=== PATIENT | male | born 1965 | race Caucasian/White ===

== ENCOUNTER → 2016-12-07 | Outpatient (CLI) | payer OTHER ==
[~2016-12-07] MED LIST: ALLOPURINOL 10100 M1 PO; FLEXERIL PO; FLOVENT HFA 2220 MC1 INH; LEVOTHYROXIN0.075 MG PO; LEVOTHYROXIN0.175 MG PO; NASONEX17 GM NS; PERCOCET 5-3251 EACH PO; PROAIR HFA8.5 GM IH; PROAIR HFA8.5 GM INH; SYMBICORT80 MCG/4.1 INH; ULTRAM 50MG TAB50 MG PO
[2016-12-07 12:34] LABS: ABSOLUTE NEUTROPHILS 10.4 thou/uL (1.4-8.2); BASOPHILS 0.2 % (0.0-2.0); EOSINOPHILS 0.5 % (0.0-3.0); HEMATOCRIT 41.3 % (42.0-52.0); MCH 27.9 pg (26.0-34.0); MCHC 33.8 g/dL (28.0-37.0); MCV 82.4 fL (80.0-100.0); MONOCYTES 5.8 % (1.0-8.0); PLATELET COUNT 218 thou/uL (150-400); POLYS 82.5 % (36.0-66.0); RBC 5.02 mil/uL (4.50-6.00); RDW 15.1 % (10.5-14.5); WBC 12.6 thou/uL (4.0-11.0)
[2016-12-07 12:35] LABS: MANUAL DIFF NO
== END ==
LOC: RAD 12:09
PROVIDERS: Internal Medicine Pulmonary Disease
DX: J45.40 Moderate persistent asthma, uncomplicated (principal)

== ENCOUNTER 2018-07-11 00:17 | Inpatient (IN) | payer OTHER ==
[~2018-07-11] VITALS: Ht 185.4 cm; Wt 120.0 kg
--- NOTE | ~2018-07-11 | CATHLAB ---
[facility] [address] [employer] [place] [address] INVASIVE PROCEDURE REPORT Name: ESTEE KHAN Room #: 213-P ADM IN M.R.#: [id number] Admission: 07/11/18 Attend Phys: Ranjit Espitia MD Discharge: Date of : 65 Date of Service: 07/11/18 1313 Report #: [id number] THIS REPORT FOR: //name// APPROVED REPORT Study performed: 07/11/2018 07:40:00 Patient Details Patient Status: In-Patient Room #: The patient is a 52 year-old male Event Personnel Carlos Salinas Cell Tuber Machine, Edwin Lopez Mahmood, Amber Monitor, Rambo Metz RN Procedures Performed Art Access - R femoral artery* 98744 Initial Mod Sed Same Phys/QHP Gr5y [id number] 58006 Mod Sed Same Phys/QHP Ea 662619 Left Heart Cath w/or w/o Coronaries [id number] [facility] Place w/wo Plasty Single LAD 041595 Hemostasis w/ Mynx Indication Non-STEMI (>12 hrs to = 24 hrs), Chest pain Procedure Narrative The patient was brought urgently to the Cardiac Catheterization Laboratory and was prepped and draped in a sterile manner. The Right Groin^ was infiltrated with 1% Lidocaine subcutaneous anesthesia. A PINNACLE 6FR Sheath #[id number] sheath was inserted into the RFA^. Coronary angiography was performed using coronary diagnostic catheters. The right coronary system was accessed and visualized with a JR 4 catheter. The left coronary system was accessed and visualized with a JL 4 catheter. The left ventricle was accessed and visualized with a Pigtail catheter. Left ventricular/Aortic Valve gradient assessed via catheter pullback. Left ventriculogram was performed in TORREZ projection. Closure device was deployed with a 6 Fr . The patient tolerated the procedure well and there were no complications associated with the procedure. There was no hematoma. Intraoperative Conscious Sedation Sedation start time: 08:02 Case end Time: 08:46 Fentanyl 50 mcg Versed 1.5 mg Fluoro Time: 6.80 minutes [facility] [address] [place] [address] INVASIVE PROCEDURE REPORT Name: ESTEE KHAN Room #: 213-P [facility] IN .R.#: [id number] Admission: 07/11/18 Attend Phys: Ranjit Espitia MD Discharge: Date of : 65 Date of Service: 07/11/18 1313 Report #: [id number] Dose: DAP 39285.00 cGycm2 1895 mGy Contrast Type and Amount: Omnipaque 150 ml Diagnostic Cath Left Main Normal left main LAD Critical 99% proximal LAD stenosis at the first septal perforating branch. There is a 50-60% mid LAD stenosis before the second diagonal branch. The distal half of the LAD was relatively small in caliber with moderate diffuse disease Circumflex The circumflex was large with mild proximal plaquing OM1 Large first marginal branch, angiographically normal Right Coronary The right coronary was dominant with a 40-50% proximal and mid right coronary stenoses R PDA Angiographically normal posterior descending branch RPLV Mild posterior lateral branch plaquing Left Ventriculography The left ventricle is mildly dilated in size with abnormal contractility. The left ventricular ejection fraction is estimated to be 35-40%. Left ventricular wall motion abnormalities are present. There is no mitral insufficiency. Anterior and anteroapical hypokinesis Hemodynamics The aortic pressure is 119/62 mmHg with a mean of 87 mmHg. The left ventricular pressure is 130/10 mmHg with a mean of mmHg. The left ventricular end diastolic pressure is 23 mmHg. PCI Technique Lesion Anticoagulation was achieved with Heparin, Integrilin. Patient was preloaded with Effient. Percutaneous coronary intervention was performed on the proximal left anterior descending artery segment. The lesion stenosis prior to intervention was 99% with SANFORD 3 flow. A LAUNCHER 6FR EBU 3.5 #[id number] Guide Catheter was used to engage the ostium. A Luge Wire .014 x 182CM #[id number] Interventional Guidewire was used to cross the lesion. BALLOON DILATION A Balloon catheter Euphora RX 2.5 x 10 #[id number] was inserted and inflated up to 8.00atm for 27seconds. STENT DEPLOYMENT A bare metaldrug-eluting stent XIENCE DANIELA RX 2.5 X 15 #[id number] was inserted and inflated up to 12.00atm for 30seconds. [facility] [address] [place] [address] INVASIVE PROCEDURE REPORT Name: ESTEE KHAN Room #: 213-P ADM IN M.R.#: [id number] Admission: 07/11/18 Attend Phys: Ranjit Espitia MD Discharge: Date of : 65 Date of Service: 07/11/181312 Report #: [id number] STENT DEPLOYMENT BALLOON DILATION A Balloon catheter InnohubK NC RX 2.5 X 12 #[id number] was inserted and inflated up to 20.00atm for 33seconds. Final angiography reveals 0 % stenosis with SANFORD 3 flow. Conclusion 1. Moderate left ventricular dysfunction with left ventricular enlargement. Anterior and anteroapical hypokinesis. Ejection fraction 35-40% 2. Normal left main 3. Moderate diffuse mid to distal LAD disease. Critical 99% proximal LAD stenosis treated with a 2.5 x 15mm Daniela medicated stent 4. Mild circumflex disease 5. Dominant right coronary. 40-50% proximal and mid right coronary stenoses. Recommendations Cardiac Rehabilitation Referral Aggressive Medical Therapy Medications Administered DERICK Inhibitor (any) Aspirin (any) Beta Liane (any) Statin (any) Prasugrel Cardiac Rehabilitation Referral <ELECTRONICALLY SIGNED> By: Carlos Salinas MD, [facility] 07/11/183 12 12 Carlos Salinas MD, FACC /INF
--- NOTE | ~2018-07-11 | EKG ---
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
--- NOTE | ~2018-07-11 | EKG ---
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 : 1965 Requested By: Carlos Salinas Order Number: [id number] MD: Carlos Salinas Measurements Intervals [place] Rate: 74 P: 40 OR: 150 QRS: 100 QRSD: 104 T: 102 QT: 406 QTc: 451 Interpretive Statements Sinus rhythm Anteroseptal infarct, age indeterminate Lateral leads are also involved Compared to ECG 07/11/2018 10:22:01 Myocardial infarct finding now present Electronically Signed On 07-12-2018 11:02:50 FLAMER AFTER LASTING by Carlos Salinas [email or web address] <ELECTRONICALLY SIGNED> By: Carlos Salinas MD, [facility] 07/12/18 1102 0808 0808 Carlos Salinas MD, [facility] /EPI
--- NOTE | ~2018-07-11 | EKG ---
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 And Signal Mechanic: DARSHANA : 1965 Requested By: Karina Contreras Order Number: [id number] MD: Tawanda Reinoso Measurements Intervals [place] Rate: 74 P: 50 TX: 157 QRS: 72 QRSD: 106 T: 91 QT: 383 QTc: 425 Interpretive Statements Sinus rhythm Frequent ectopics noted Nonspecific ST-T wave changes No previous ECG available for comparison Electronically Signed On 07-11-2018 12:00:44 MAINTENANCE AND OPERATIONS SUPERVISOR by Tawanda Reinoso [email or web address] <ELECTRONICALLY SIGNED> By: Tawanda Reinoso MD 07/11/18 1200 0304 0304 Tawanda Reinoso MD /OTTONIEL
--- NOTE | ~2018-07-11 | 2DMMODE ---
[facility] [place] [address] 2 D/M-MODE ECHOCARDIOGRAM Name: ERINESTEE Room #: 213-P ADM IN M.R.#: [id number] Admission: 07/11/18 Attend Phys: Ranjit Espitia MD Discharge: Date of : 65 Date of Service: 07/11/18 1047 Report #: [id number] THIS REPORT FOR: //name// APPROVED REPORT Study performed: 07/11/2018 09:36:11 EXAM: Comprehensive 2D, Doppler, and color-flow Echocardiogram Patient Location: Out-Patient Status: routine BSA: 2.42 HR: 65 bpm BP: 123/85 mmHg Rhythm: NSR Other Information Study Quality: Fair Technically limited study due to status post cath/flat on back/ obesity/heavy snoring. Indications Chest pain, NH, status post Stent. Hx: DM, HTN 2D Dimensions RVDd: 37.59 mm IVSd: 12.39 (7-11mm) LVOT Diam: 22.23 (18-24mm) LVDd: 56.06 mm PWd: 11.08 (7-11mm) Ascending Ao: 35.84 (22-36mm) LVDs: 46.48 (25-40mm) Aortic Root: 36.92 mm Volumes Left Atrial Volume (Systole) Single Plane 4CH: 45.85 mL Single Plane 2CH: 52.57 mL LA ESV Index: 22.00 mL/m2 Aortic Valve AoV Peak Albert.: 1.30 m/s AO Peak Gr.: 6.80 mmHg LVOT Max P.83 mmHg LVOT Max V: 0.84 m/s MARTINA Vmax: 2.50 cm2 Mitral Valve E/A Ratio: 0.7 [facility] [address] [address] 2 D/M-MODE ECHOCARDIOGRAM Name: ESTEE KHAN Room #: 213-P ADM IN ..#: [id number] Admission: 07/11/18 Attend Phys: Ranjit Espitia MD Discharge: Date of : 65 Date of Service: 07/11/18 1047 Report #: [id number] MV Decel. Time: 252.21 ms MV E Max Albert.: 0.62 m/s MV A Albert.: 0.84 m/s MV PHT: 73.14 ms IVRT: 92.27 ms Pulmonary Vein P Vein S: 0.33 m/s P Vein A: 0.30 m/s P Vein D: 0.18 m/s P Vein A Dur.: 110.7 msec P Vein S/D Ratio: 1.83 Tricuspid Valve RAP Estimate: 5.00 mmHg Left Ventricle The left ventricle is normal size. There is global hypokinesis of the left ventricle. Mild basal septal hypertrophy is present. Left ventricular systolic function is moderate to severely decreased. LVEF is 30-35%. Mild diastolic dysfunction is present (impaired relaxation pattern). Right Ventricle The right ventricle is normal size. The right ventricular systolic function is normal. Atria The left atrium size is normal. The right atrium size is normal. Aortic Valve The aortic valve is normal in structure. No aortic regurgitation is present. There is no aortic valvular stenosis. Mitral Valve The mitral valve is normal in structure. There is no mitral valve regurgitation noted. Tricuspid Valve The tricuspid valve is normal in structure. There is no tricuspid valve regurgitation noted. Unable to assess PA pressure. Pulmonic Valve The pulmonary valve is normal in structure. There is no pulmonic valvular regurgitation. Great Vessels [facility] [address] [place] [address] 2 D/M-MODE ECHOCARDIOGRAM Name: ESTEE KHAN Room #: 213-P [facility] IN M.R.#: [id number] Admission: 07/11/18 Attend Phys: Ranjit Espitia MD Discharge: Date of : 65 Date of Service: 07/11/18 1047 Report #: [id number] The aortic root is normal in size. The ascending aorta is normal in size. IVC is normal in size and collapses >50% with inspiration. Pericardium There is no pericardial effusion. <Conclusion> The left ventricle is normal size. LVEF is 30-35%. There is global hypokinesis of the left ventricle. The right ventricle is normal size. The left atrium size is normal. The right atrium size is normal. The aortic valve is normal in structure. The mitral valve is normal in structure. The tricuspid valve is normal in structure. There is no tricuspid valve regurgitation noted. Unable to assess PA pressure. The pulmonary valve is normal in structure. There is no pulmonic valvular regurgitation. There is no pericardial effusion. <ELECTRONICALLY SIGNED> By: Tawanda Reinoso MD 07/11/18 1047 1047 104 Tawanda Reinoso MD /INF
--- NOTE | ~2018-07-11 | HC ---
[facility] [place] [address] CONSULTATION Name: ESTEE KHAN Room #: 213-P ADM IN M.R.#: [id number] Admission: 07/11/18 Attend Phys: Ranjit Espitia MD Discharge: Date of : 65 Report #: [id number] THIS REPORT FOR: //name// CC: Serafin Espitia REASON FOR CONSULTATION: Myocardial infarction. HISTORY OF PRESENT ILLNESS: The patient is a nice 52-year-old gentleman with history of diabetes, dyslipidemia and family history of coronary artery disease. Since Saturday, has had intermittent chest pain. I have been asked to see him in this regard. His history comes from interview with the patient, his and review provided in outpatient records, which are summarized in the note. On Saturday of this week, the patient presented to [facility] with chest discomfort, described this as a pressure feeling with associated nausea, he thought that this was reflux as he had just eaten a ham sandwich. Troponins, EKGs were normal. He was discharged. The pain recurred last night at about 8 o'clock, was much more intense and associated with diaphoresis and radiation to the back of his neck and down his arms. He re-presented to the Emergency Department at [place] where troponin levels were minimally elevated. He has had an intermittent left bundle-branch block. He is treated with morphine and Zofran and had improvement in his pain. He denies a past cardiac history. There have been no heart failure symptoms including orthopnea, paroxysmal nocturnal dyspnea or lower extremity edema. No history of near syncope or syncope. ALLERGIES: No known drug allergies. MEDICATIONS: Include albuterol, Flovent, levothyroxine 175 mcg daily, allopurinol 100 mg daily, metformin. PAST MEDICAL HISTORY: Medical records have been reviewed and included a history of gallstone pancreatitis with a subsequent cholecystectomy, tonsillectomy, sinus surgery. 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 FAMILY HISTORY: Notable for multiple family members with premature coronary artery disease. REVIEW OF SYSTEMS: All systems negative except as that noted above. PHYSICAL EXAMINATION: GENERAL: Reveals a pleasant gentleman in no distress. He has ongoing mild discomfort. VITAL SIGNS: Blood pressure is 121/80, heart rate of 51 and regular. He is afebrile. [address] [address] CONSULTATION Name: ESTEE KHAN Room #: 213-P [facility] IN M.R.#: [id number] Admission: 07/11/18 Attend Phys: Ranjit Espitia MD Discharge: Date of : 65 Report #: [id number] HEENT: There are neither xanthelasma, subcutaneous xanthomata, oral mucosal or digital cyanosis or kyphoscoliosis present. CHEST: Clear to auscultation and percussion. CARDIOVASCULAR: Regular rate and rhythm with normal S1, S2. No murmurs or rubs. ABDOMEN: Soft and nontender. EXTREMITIES: Without cyanosis, clubbing or edema. Radial pulses are 2+. NEUROLOGIC: He is alert with a nonfocal exam. LABORATORY DATA: EKG sinus rhythm with minor nonspecific T-wave abnormality. He has had an intermittent left bundle-branch block. He has also had a nonsustained fast ventricular tachycardia on the monitor. Sodium is 142, potassium 4.0, potassium 3.8, creatinine 1.1. Troponin 22, cholesterol 176, HDL 37, LDL 123. ProBNP of 337. White count 9.1, hemoglobin 13, hematocrit 40, platelet count 210. IMPRESSION: 1. Non-Q-wave myocardial infarction. 2. Diabetes. 3. Paroxysmal ventricular tachycardia, zafar-infarct. 4. Intermittent left bundle branch block. 5. Dyslipidemia. 6. Gout. RECOMMENDATIONS: Coronary angiography. This procedure was discussed in detail including its associated risks. Alternatives were discussed. After a thorough discussion of the procedure, its risks and alternatives and after answering his questions, he is agreeable to proceeding. <ELECTRONICALLY SIGNED> By: Carlos Salinas MD, [facility] 07/11/18 1649 0741 0839 Carlos Salinas MD, FACC /nt
--- NOTE | ~2018-07-11 | EKG ---
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 : 1965 Requested By: Jorge Talavera Order Number: [id number] MD: Tawanda Reinoso Measurements Intervals [place] Rate: 72 P: 44 [place]: 147 QRS: 91 QRSD: 110 T: 92 QT: 394 QTc: 432 Interpretive Statements Sinus rhythm Low voltage in the limb leads Nonspecific ST-T wave changes No significant changes from prior ECG Electronically Signed On 07-11-2018 12:07:23 SEAL DELIVERY VEHICLE OFFICER by Tawanda Reinoso [email or web address] <ELECTRONICALLY SIGNED> By: Tawanda Reinoso MD 07/11/18 1207 0733 0733 Tawanda Reinoso MD /OTTONIEL
[~2018-07-11 00:17] MED LIST changes: -FLOVENT HFA 2220 MC1 INH; -LEVOTHYROXIN0.175 MG PO; +SYMBICORT160 MCG/4. INH; +SYNTHROID175 MCG PO
[2018-07-11 00:50] VITALS: BP 136/99
[2018-07-11] MEDS ORDERED: PROTONIX40 M2 PO (01:29)
[2018-07-11] MEDS ORDERED: GLUCOPHAGE XR500 MG PO (01:31)
[2018-07-11] MEDS ORDERED: OZEMPIC1 MG/0.75 SUBQ (01:32)
[2018-07-11 02:35] LABS: CHOLESTEROL 174 mg/dL (<200); HDL CHOLESTEROL 38 mg/dL (>40); LDL CHOLESTEROL 119 mg/dL (<100); TC:HDL 4.6 Ratio (Not establshd); TRIGLYCERIDE 85 mg/dL (<150); VLDL 17 mg/dL (<40)
[2018-07-11 02:36] LABS: SERUM ASSESSMENT Clear
[2018-07-11 04:23] VITALS: BP 121/80
[2018-07-11 06:55] LABS: HEMATOCRIT 40.1 % (42.0-52.0); HEMOGLOBIN 13.6 gm/dL (14.0-18.0); MCH 27.6 pg (26.0-34.0); MCV 81.2 fL (80.0-100.0); RBC 4.93 mil/uL (4.50-6.00); RDW 14.9 % (10.5-14.5); WBC 9.1 thou/uL (4.0-11.0)
[2018-07-11 07:22] LABS: MAGNESIUM 1.9 mg/dL (1.8-2.4)
[2018-07-11 07:24] LABS: ANION GAP 8 mmol/L (7-16); BUN 15 mg/dL (7-18); CALCIUM 8.7 mg/dL (8.5-10.1); CHLORIDE 106 mmol/L (98-107); CHOLESTEROL 176 mg/dL (<200); CO2 28 mmol/L (21-32); CREATININE 1.1 mg/dL (0.7-1.3); GLUCOSE 111 mg/dL (74-106); HDL CHOLESTEROL 37 mg/dL (>40); LDL CHOLESTEROL 123 mg/dL (<100); SODIUM 142 mmol/L (136-145); TC:HDL 4.8 Ratio (Not establshd); TRIGLYCERIDE 81 mg/dL (<150); VLDL 16 mg/dL (<40)
[2018-07-11 07:27] VITALS: BP 123/85
[2018-07-11 07:32] LABS: TROPONIN-I 22.78 ng/mL (<0.06)
[2018-07-11 09:20] VITALS: BP 128/89
[2018-07-11] MEDS ORDERED: SINGULAIR 10 MG10 M1 PO (13:50)
[2018-07-11 15:43] VITALS: BP 117/76
[2018-07-11 19:59] VITALS: BP 119/73
[2018-07-12 05:06] VITALS: BP 116/58
[2018-07-12 05:38] LABS: ABSOLUTE NEUTROPHILS 5.9 thou/uL (1.4-8.2); BASOPHILS 0.7 % (0.0-2.0); EOSINOPHILS 3.2 % (0.0-3.0); HEMATOCRIT 41.6 % (42.0-52.0); HEMOGLOBIN 14.1 gm/dL (14.0-18.0); LYMPHOCYTES 19.4 % (24.0-44.0); MCH 27.7 pg (26.0-34.0); MCHC 33.9 g/dL (28.0-37.0); MCV 81.7 fL (80.0-100.0); MONOCYTES 8.8 % (1.0-8.0); PLATELET COUNT 200 thou/uL (150-400); POLYS 67.9 % (36.0-66.0); RBC 5.09 mil/uL (4.50-6.00); WBC 8.7 thou/uL (4.0-11.0)
[2018-07-12 05:52] LABS: ALBUMIN 3.3 g/dL (3.4-5.0); CALCIUM 8.9 mg/dL (8.5-10.1); CREATININE 1.1 mg/dL (0.7-1.3); POTASSIUM 3.7 mmol/L (3.5-5.1); TOTAL BILIRUBIN 1.1 mg/dL (<0.1-1.0); TOTAL PROTEIN 6.9 g/dL (6.4-8.2)
[2018-07-12 05:56] LABS: TROPONIN-I 10.75 ng/mL (<0.06)
[2018-07-12 09:03] VITALS: BP 114/72
[2018-07-12 12:00] VITALS: BP 95/65
[2018-07-12 16:00] VITALS: BP 101/62
[2018-07-12 19:44] VITALS: BP 102/64
[2018-07-13 04:57] VITALS: BP 93/57
[2018-07-13 08:19] VITALS: BP 105/64
[2018-07-13] MEDS ORDERED: EFFIENT10 MG PO (08:49)
[2018-07-13] MEDS ORDERED: ASPIRIN325 PO (08:49)
[2018-07-13] MEDS ORDERED: ATORVASTATIN CA40 MG PO (08:49)
[2018-07-13] MEDS ORDERED: LISINOPRIL5 MG PO (08:49)
[2018-07-13] MEDS ORDERED: METOPROLOL SUCC25 M1 PO (08:49)
[2018-07-13 10:18] VITALS: BP 105/64
== END 2018-07-13 10:45 | disposition home or self-care (01) | DRG 247 ==
LOC: 2N 00:17
PROVIDERS: Hospitalist; Internal Medicine; Nurse Practitioner Acute Care
DX: I21.4 Non-ST elevation (NSTEMI) myocardial infarction (principal); I47.2 Ventricular tachycardia; I50.20 Unspecified systolic (congestive) heart failure; E11.9 Type 2 diabetes mellitus without complications; E78.5 Hyperlipidemia, unspecified; I44.7 Left bundle-branch block, unspecified; M10.9 Gout, unspecified; J45.909 Unspecified asthma, uncomplicated; K21.9 Gastro-esophageal reflux disease without esophagitis; E03.9 Hypothyroidism, unspecified; E66.9 Obesity, unspecified; E87.6 Hypokalemia; I25.5 Ischemic cardiomyopathy; Z82.49 Family history of ischemic heart disease and other diseases of the circulatory system; Z90.49 Acquired absence of other specified parts of digestive tract; Z68.34 Body mass index [BMI] 34.0-34.9, adult; Z79.82 Long term (current) use of aspirin; Z79.899 Other long term (current) drug therapy
CPT/HCPCS: 10081

== ENCOUNTER → 2019-12-29 | Outpatient (CLI) | payer OTHER ==
[~2019-12-29] MED LIST changes: +ASPIRIN325 PO; +ATORVASTATIN CA40 MG PO; +EFFIENT10 MG PO; +GLUCOPHAGE XR500 MG PO; +LISINOPRIL5 MG PO; +METOPROLOL SUCC25 M1 PO; +OZEMPIC1 MG/0.75 SUBQ; +PROTONIX40 M2 PO; +SINGULAIR 10 MG10 M1 PO
== END ==
LOC: RAD 09:47
DX: J45.40 Moderate persistent asthma, uncomplicated (principal)

== ENCOUNTER → 2020-06-14 | Outpatient (CLI) | payer OTHER | LOC: SJCVCIMAG 09:16 | PROVIDERS: ATTEND Internal Medicine | DX: I25.10 Atherosclerotic heart disease of native coronary artery without angina pectoris (principal); R53.83 Other fatigue; Z95.5 Presence of coronary angioplasty implant and graft ==